=== PATIENT | male | born 1965 ===

== ENCOUNTER → 2020-11-20 10:50 | Outpatient (CLI) | payer OTHER | END | disposition home or self-care (01) | LOC: PPH VACUNA 10:50 | DX: Z23 Encounter for immunization (principal) ==

== ENCOUNTER 2021-08-02 09:00 | Outpatient (CLI) | payer OTHER | END 2021-08-02 09:15 | disposition home or self-care (01) | LOC: PPH VACUNA 09:00 | PROVIDERS: ATTEND Emergency Medicine Pediatric Emergency Medicine | DX: Z23 Encounter for immunization (principal) ==